=== PATIENT | male | born 1955 | race Caucasian/White ===

== ENCOUNTER 2020-03-03 06:04 | Day surgery (SDC) | payer OTHER ==
[2020-03-01 08:24] VITALS: BMI 28.3
[~2020-03-03 06:04] MED LIST: DEXAMETHASONE SOD PHOSPHATE 10 MG/ML 1 ML VIAL IV ONE; HYDROmorphone 0.5 MG/0.5 ML SYRINGE IVP PRN; LACTATED RINGERS 1,000 ML IV SCH; LIDOCAINE 1% (10MG/ML) FOR IV START INTRADERMA PRN; MIDAZOLAM 2 MG/2 ML VIAL IV PRN; ONDANSETRON 4 MG/2 ML VIAL IVP ONE; fentaNYL (PF) 50 MCG/ML 2 ML AMP IVP PRN
[2020-03-03] MEDS ORDERED: ONDANSETRON 4 MG/2 ML VIAL ONE (06:27)
[2020-03-03] MEDS ORDERED: fentaNYL (PF) 50 MCG/ML 2 ML AMP ONE (07:26)
[2020-03-03] MEDS ORDERED: SUCCINYLCHOLINE CHLORIDE VIAL 200 MG/10 ML VIAL IV ONE (07:26)
[2020-03-03] MEDS ORDERED: ROPIVACAINE 5 MG/ML 30 ML VIAL ONE (07:26)
[2020-03-03] MEDS ORDERED: LIDOCAINE 1% INJ 10MG/ML (20 ML MDV) ONE (07:26)
[2020-03-03] MEDS ORDERED: DEXAMETHASONE SOD PHOSPHATE 4 MG/ML 1 ML VIAL ONE (07:26)
[2020-03-03] MEDS ORDERED: PROPOFOL 10 MG/ML 20 ML VIAL IV ONE (07:26)
[2020-03-03] MEDS ORDERED: MIDAZOLAM 2 MG/2 ML VIAL ONE (07:26)
[2020-03-03] MEDS ORDERED: ePHEDrine SULFATE/0.9% NACL/PF 50 MG/5 ML SYRINGE IV ONE (07:26)
[2020-03-03] MEDS ORDERED: LACTATED RINGERS 1,000 ML IV ONE (07:40)
[2020-03-03] MEDS ORDERED: BUPIVACAIN-EPI 0.25%-1:200,000 30 ML VIAL INTRAARTIC ONE (08:10)
[2020-03-03 09:19] VITALS: TEMP 97.1
[2020-03-03 09:30] VITALS: RESP 16
[2020-03-03 10:43] VITALS: BP 139/85; PULSE 76
--- NOTE | 2020-03-03 17:23 | OP ---
OPERATIVE REPORT DATE OF PROCEDURE: 03/03/2020. SURGEON: Blane Sun M.D. COOLING PAN TENDER: Jeff Loza PA-C PREOPERATIVE DIAGNOSES: 1. Right shoulder full-thickness rotator cuff tear. 2. Right shoulder superior labral tear. 3. Right shoulder cervical impingement. POSTOPERATIVE DIAGNOSES: 1. Right shoulder high-grade (75% or greater) partial-thickness tear of the supraspinatus, bursal surface sided partial-thickness tear of the supraspinatus. 2. Right shoulder type 2 superior labral tear. 3. Right shoulder partial tearing of the intraarticular long head of the biceps tendon. 4. Right shoulder type 2 anterolateral acromial spur. PROCEDURE PERFORMED: 1. Right shoulder arthroscopic rotator cuff repair, 1 x 1 cm tear of the supraspinatus. 2. Right shoulder arthroscopic acromioplasty. 3. Right shoulder arthroscopic biceps tenotomy. 4. Right shoulder arthroscopic anterior superior posterior labral debridement. ANESTHESIA: General endotracheal. ESTIMATED BLOOD LOSS: Minimal. TOURNIQUET: None. DRAINS: None. COMPLICATIONS: None apparent. DISPOSITION: Post-Anesthesia Care Unit. EXAMINATION UNDER ANESTHESIA: Right shoulder elevation 160 degrees, external rotation at the side was to 60 degrees, external rotation 90 degrees. Adduction was to 95 degrees, internal rotation 90 degrees, abduction was to 70 degrees. Sulcus less than 1 cm, anterior translation glenoid face, posterior translation glenoid face. ARTHROSCOPIC FINDINGS RIGHT SHOULDER: 1. Superior labrum, type 2 superior labral tear tearing both anterior and posterior to the biceps anchor. The biceps anchor was not intact. I also had a low-grade partial tearing of the intraarticular portion of long head of the biceps tendon. 2. Anterior inferior labrum normal glenoid labral test. 3. Posterior labrum tearing of the posterior labrum from the 10 o'clock position to the 12 o'clock position on the glenoid face. 4. Humeral head cartilage normal. 5. Rotator cuff very high-grade bursal-sided partial-thickness tear of the supraspinatus measuring 1 x 1 cm with minimal retraction. There was fraying of the superior rolled border of the subscapularis with intact attachment to the lesser tuberosity. 6. Glenoid face cartilage was normal. 7. Subacromial space significant fraying of the undersurface of the coracoacromial ligament with type 2 anterolateral acromial spur. INDICATIONS: Miguel Angel is a very pleasant 64-year-old male who injured his right shoulder starting his kiss mixer in September. He has noted weakness as well as significant pain in the shoulder since that time. He has been through a fairly significant course of nonoperative treatment up to this point. Physical examination and MRI revealed tearing of the superior labrum as well as rotator cuff tear. At this point in time he feels that he has failed nonoperative treatment and would like to proceed with operative intervention. A long discussion was held with the patient with regard to treatment options. The risks of the procedure were all discussed with him in detail. These risks included but were not limited to risk of infection, nerve damage, bleeding, pain, and a small risk of deep vein thrombosis which could lead to fatal pulmonary embolism. Further risks include lack of healing of the rotator cuff and the possibility for biceps contour change with a biceps tenotomy. The patient understands the operation as well as the fact there is no guarantee of improvement of his symptoms. Appropriate informed consent was obtained. DESCRIPTION OF THE PROCEDURE: Patient was identified in preoperative holding area. Surgical site was marked by both the patient and myself. He was given 2 grams of Ancef IV for prophylactic purposes. He was then transferred to the operative suite. He was placed supine on the operating room table. The patient was then intubated endotracheally and received general anesthesia throughout the operative procedure. Examination under anesthesia was then performed. The findings are noted above. The patient was then placed into the beach chair position, well padded in preparation for surgery. Great care was taken to ensure that his cervical spine was in neutral alignment, well padded and maintained that way throughout the operative procedure. Great care was also taken to ensure that his legs were appropriately padded as well. The patient's right upper extremity was then prepped and draped in the usual sterile fashion. Standard surgical pause was undertaken to ensure that appropriate preoperative antibiotics had been given and that we were operating on the correct site. All staff in the room were in agreement and we proceeded. The acromion as well as the AC joint and coracoid were marked with a surgical pen. The skin of the anticipated port sites was also marked with a surgical pen. The skin of the anticipated portal sites was then injected with 0.25% Marcaine with epinephrine. I then proceeded to make the posterior portal. A 30-degree arthroscope was introduced into the glenohumeral joint through this portal. The arthroscopic pump pressure was set at 40 mmHg and maintained at that level throughout the entire case. Next, utilizing an 18-gauge spinal needle to topically localize the placement, the anterior superior portal was made. This was made just underneath the biceps tendon high on the rotator interval. A small 5.75 mm cannula was then placed and the outflow was then done through this cannula. A diagnostic arthroscopy of the shoulder was then performed. The findings are noted above. Great care was taken to probe superior labral complex as well as the biceps anchor. The biceps anchor was not firmly attached. He had significant tearing of the superior labrum. This extended both anterior and posterior to the biceps anchor. The intraarticular portion of the long head of the biceps tendon did have partial tearing as well. At this point I proceeded with a biceps tenotomy. The biceps was tenotomized near its attachment on the supraglenoid tubercle. This was done utilizing the ArthroCare wand. I then proceeded to debride the torn loose tissue of the superior labrum. This was debrided anteriorly, superiorly and posteriorly back to stable tissue. I then inspected the rotator cuff from intraarticular. The articular surface of the supraspinatus was intact. The rotator cable was also intact. The subscapularis did have tearing of the superior aspect of it. This was approximately the superior one third. It was retracted quite a bit. I did attempt to mobilize it. It was nearly immobile. This was real relatively predictable, given the amount of fatty atrophy in the superior aspect of the subscapularis on his preoperative MRI. At this point in time no further work was deemed necessary from intraarticular. The arthroscope was removed from the glenohumeral joint, and utilizing the same posterior skin incision, it was placed in the subacromial space. Next utilizing an 18-gauge spinal needle to topically localize the placement, a lateral portal was made under direct visualization. A subacromial bursectomy was then performed utilizing the synovial shaver as well as the ArthroCare wand. There was significant fraying of the undersurface of the coracoacromial ligament. This was then taken down utilizing the ArthroCare wand. This exposed an underlying type 2 anterolateral acromial spur. I then proceeded with acromioplasty. Utilizing synovial shaver in a kamini-type fashion, the acromioplasty was completed. When the acromioplasty was completed, the arthroscope was placed in the lateral portal and the shaver placed posteriorly to ensure that it was adequate and coplanar with the posterior aspect of the acromion. I then proceeded with repair of the rotator cuff tear. He had a very high-grade partial-thickness tear of the bursal surface of the supraspinatus. There was quite a bit of calcification noted around this as well. This was at least 75% of the tendon. The infraspinatus showed no evidence of tearing. I made a fourth portal off the anterolateral angle of the acromion. Again this was done after first localizing with an 18-gauge spinal needle. The footprint of the greater tuberosity was then debrided of all devitalized tissue utilizing a synovial shaver as well as the ArthroCare wand. I then performed a light decortication of the greater tuberosity utilizing the synovial shaver in a kamini-type fashion. This provided a nice bleeding surface for the repair. I then placed small microfracture holes along the articular margin to again enhance the healing of the repair. I then utilized a scorpion suture-passer and placed Arthrex fiber tape suture in an inverted horizontal mattress fashion. These sutures were shuttled out through the anterolateral portal. I then proceeded with placement of the anchor. The awl was placed at the most anterolateral aspect of the footprint. This was just posterior to the bicipital groove. The fiber tape sutures were shuttled through the anchor and the anchor was placed after tensioning the sutures appropriately. The anchor had excellent purchase in bone. This brought the rotator cuff tear down very nicely to the most anterolateral aspect of the footprint. The fiber tape sutures were cut flush with the anchor. The repair was then probed. The rotator cuff had been repaired down very nicely to the most lateral aspect of the footprint. At this point time no further work was deemed necessary. The shoulder was thoroughly irrigated and drained with an outflow cannula. The arthroscopic equipment was removed from the shoulder. The arthroscopic portals were closed with 3-0 nylon interrupted suture. Sterile compressive dressings were then applied. The patient's right upper extremity was placed into a standard sling. All sponge and needle counts were deemed correct prior to closure. The patient tolerated the procedure without apparent complication. He was transferred to the recovery room in stable condition. MMDAVID / ADEEL: [id number] /
--- NOTE | 2020-03-04 06:54 | P.ANPRN ---
Procedure Note - Anesthesia - Nerve Block Performed Right Interscalene Single Time Out Performed: Yes Date of Procedure: 03/03/20 Procedure Start Time: 06:48 Procedure Stop Time: 06:52 Location of Patient: PreOp Indication: Acute Post-Operative Pain, Requested by Surgeon Sedation Type: Sedate with meaningful contact maintained Preparation: Sterile Prep Position: Supine Needle Types: Pajunk Needle Gauge: 21 Ultrasound used to visualize needle placement: Yes Ultrasound used to observe medication spread: Yes Blood Aspirated: No Pain Paresthesia on Injection Noted: No Resistance on Injection: Normal Image Stored and Saved: Yes Events: Uneventful and Well Tolerated (ropi .5% 30cc plus dexamethasone 4mg)
== END 2020-03-03 11:08 | disposition home or self-care (01) ==
LOC: OR 06:04
PROVIDERS: ATTEND Orthopaedic Surgery Sports Medicine
DX: S46.011A Strain of muscle(s) and tendon(s) of the rotator cuff of right shoulder, initial encounter (principal); S43.431A Superior glenoid labrum lesion of right shoulder, initial encounter; S46.111A Strain of muscle, fascia and tendon of long head of biceps, right arm, initial encounter; M77.9 Enthesopathy, unspecified; E78.5 Hyperlipidemia, unspecified; H91.90 Unspecified hearing loss, unspecified ear; Z88.6 Allergy status to analgesic agent; Z97.3 Presence of spectacles and contact lenses; Z98.890 Other specified postprocedural states; Z87.891 Personal history of nicotine dependence; Z82.49 Family history of ischemic heart disease and other diseases of the circulatory system; X58.XXXA Exposure to other specified factors, initial encounter
CPT/HCPCS: 64415; 76942; 29827; 29826; J2250; J0330; J1100 ×2; J0690; J2405; J2001; J3010; J2795; J2704